=== PATIENT | female | born 1990 | race Caucasian/White ===

== ENCOUNTER → 2017-12-24 | Emergency (ER) | payer MEDICAID ==
[~2017-12-24] VITALS: Ht 170.2 cm; Wt 67.8 kg
[~2017-12-24] MED LIST: CLIN300C85 PO; LEVO750T46 PO; METR500T4 PO; NICO-687 TD; NO HOME MEDS; VALA100027 PO; clindamycin 150mg capsule PO ONE; ibuprofen 200mg tablet PO ONE; ibuprofen tablet 400 MG TABLET PO ONE
[2017-12-24 07:07] VITALS: BP 127/83
[2017-12-24 07:40] LABS: CLARITY,URINE CLOUDY (Clear); GLUCOSE, URINE NEGATIVE (Neg); KETONES,URINE NEGATIVE (Neg); LEUKOCYTE ESTERASE ,URINE NEGATIVE (Neg); NITRITES, URINE POSITIVE (Neg); OCCULT BLOOD,URINE SMALL (Neg); PH,URINE 5.5 (4.8-8.0); PROTEIN,URINE NEGATIVE (Neg)
[2017-12-24 07:42] LABS: COLOR,URINE DARK YELLOW (Yellow); UA COLLECTION TYPE CLN CATCH MIDSTREAM
[2017-12-24 07:46] LABS: BACTERIA,URINE 3+ /HPF (Neg); RBC,URINE NONE SEEN /HPF (0-2); SQUAMOUS EPITHELIAL CELL,UR MANY /LPF (FEW); WBC,URINE 0-4 /HPF (0-4)
[2017-12-24 07:47] LABS: MUCUS STRANDS MANY /LPF (Neg)
[2017-12-24 07:48] LABS: URINE HCG NEGATIVE (NEG)
== END | disposition home or self-care (01) ==
LOC: ER 07:05
DX: K04.7 Periapical abscess without sinus (principal); N76.0 Acute vaginitis; F17.200 Nicotine dependence, unspecified, uncomplicated; F15.90 Other stimulant use, unspecified, uncomplicated; F11.90 Opioid use, unspecified, uncomplicated; Z88.0 Allergy status to penicillin
CPT/HCPCS: 36415; 81001; 81025; 87210; 87491; 99284

== ENCOUNTER 2022-08-19 16:10 | Emergency (ER) | payer MEDICAID ==
[~2022-08-19] VITALS: Ht 170.2 cm; Wt 68.2 kg
[~2022-08-19 16:10] MED LIST changes: +CLIN-97 PO; -CLIN300C85 PO; -LEVO750T46 PO; +LEVO750T68 PO; -METR500T4 PO; -VALA100027 PO; +VALA100031 PO; -clindamycin 150mg capsule PO ONE; -ibuprofen 200mg tablet PO ONE; -ibuprofen tablet 400 MG TABLET PO ONE
[2022-08-19 16:16] VITALS: BP 150/94
--- NOTE | 2022-08-19 16:43 | NUR ---
PATIENT IS KNOWN FOR USING [employer]
== END 2022-08-19 16:58 | disposition home or self-care (01) ==
LOC: ER 16:10
DX: T19.2XXA Foreign body in vulva and vagina, initial encounter (principal); F15.10 Other stimulant abuse, uncomplicated; F11.10 Opioid abuse, uncomplicated; Z88.0 Allergy status to penicillin; Z79.899 Other long term (current) drug therapy; Z79.1 Long term (current) use of non-steroidal anti-inflammatories (NSAID); X58.XXXA Exposure to other specified factors, initial encounter; Y93.89 Activity, other specified; Y92.89 Other specified places as the place of occurrence of the external cause; Y99.8 Other external cause status
CPT/HCPCS: 99284